=== PATIENT | female | born 1955 | race American Indian/Alaskan Native ===

== ENCOUNTER 2017-12-17 20:03 | Emergency (ER) | payer OTHER ==
[2017-12-17 20:58] LABS: Basophils # (Auto) 0.1 K/mm3 (0.0-0.1); Basophils % (Auto) 0.5 % (0.0-1.8); Eosinophils # (Auto) 0.4 K/mm3 (0.0-0.4); Eosinophils % (Auto) 3.2 % (0.0-4.3); Hematocrit 37.6 % (30.3-42.9); Hemoglobin 12.6 gm/dl (10.1-14.3); Lymphocytes # (Auto) 1.9 K/mm3 (1.2-5.4); Lymphocytes % (Auto) 15.1 % (13.4-35.0); Mean Corpuscular HGB Conc 34 % (30-34); Mean Corpuscular Hemoglobin 31 pg (28-32); Mean Corpuscular Volume 91 fl (79-97); Monocytes # (Auto) 0.8 K/mm3 (0.0-0.8); Platelet Count 525 K/mm3 (140-440); Red Blood Count 4.12 M/mm3 (3.65-5.03); Red Cell Distribution Width 16.4 % (13.2-15.2)
[2017-12-17 21:11] LABS: Albumin 4.1 g/dL (3.9-5); Calcium 9.2 mg/dL (8.4-10.2)
--- NOTE | 2017-12-17 22:00 | Emergency Department Report ---
ED Syncope HPI - General Chief Complaint: Syncope Stated Complaint: SYNCOPAL EPISODE Time Seen by Provider: 12/17/17 21:40 Source: patient, family, EMS Exam Limitations: no limitations - History of Present Illness Initial Comments: Mrs. Zhou is a pleasant 62-year-old female with a history of asthma, CVA, GERD, syncope. She also has a history of chronic kidney disease stage III. Also has a history of dyslipidemia. She was brought in by EMS for syncopal episodes. She's had a chest cold for 2- 3 weeks that she just can't get over. She is currently taking prednisone and Flonase for persistent asthma. She has a history of syncope due to hypotension. She was evaluated at 2 different hospitals: once in [place] and [facility] in [facility] for recurrent syncope. She stated that she has not had history of heart attack. She has not had history of arrhythmia. She stated that each time syncope was due to hypotension. She has been previously hospitalized for syncope evaluation. She has not eaten a full meal in 3 days. She has been under a lot of stress with graduation. 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 Her has been encouraging fluid intake. witnessed syncope. Patient was able to recall that she was putting up in a groceries at her daycare. She felt weak before the episode. saw her "go down". She was unresponsive for 2-5 minutes. She did not stop breathing. Timing/Prior Episodes: remote history Precipitating Factors: Positive: lightheadedness Context: standing, activity, emotional stress Loss of Consciousness: prolonged (minutes) (2-5 minutes according to at the bedside) Current Symptoms: back to normal - Related Data Allergies/Adverse Reactions: Allergies ibuprofen [From Motrin] Allergy (Verified 12/17/17 20:33) Unknown prochlorperazine [From Compazine] Allergy (Verified 12/17/17 20:33) Unknown ED Review of Systems ROS: Stated complaint: SYNCOPAL EPISODE Other details as noted in HPI Comment: All other systems reviewed and negative Constitutional: malaise. denies: fever Respiratory: denies: cough Cardiovascular: denies: chest pain, palpitations Gastrointestinal: other ("rumbling" in her stomach). 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 Absent: tenderness, meningismus - Respiratory Respiratory exam: Present: normal lung sounds bilaterally. Absent: respiratory distress, wheezes, rales, rhonchi - Cardiovascular Cardiovascular Exam: Present: regular rate, normal rhythm, normal heart sounds. Absent: systolic murmur, diastolic murmur, rubs, gallop - GI/Abdominal GI/Abdominal exam: Present: soft, normal bowel sounds. Absent: distended, tenderness, guarding, rebound - Extremities Exam Extremities exam: Present: normal inspection - Back Exam Back exam: Present: normal inspection - Neurological Exam Neurological exam: Present: alert, oriented X3 - Psychiatric Psychiatric exam: Present: normal affect, normal mood - Skin Skin exam: Present: warm, dry, intact, normal color. Absent: rash ED Course Vital Signs 12/17/17 12/17/17 12/17/17 20:23 20:48 21:00 Temperature 98.1 F Pulse Rate 84 86 Respiratory 18 18 Rate Blood Pressure 100/64 98/67 O2 Sat by Pulse 95 98 100 Oximetry 12/17/17 12/17/17 12/17/17 21:40 22:00 22:10 Temperature Pulse Rate 76 84 Respiratory 19 12 18 Rate Blood Pressure 100/69 O2 Sat by Pulse 99 97 Oximetry 12/17/17 12/18/17 12/18/17 23:00 00:00 01:00 Temperature Pulse Rate 78 84 68 Respiratory 14 13 13 Rate Blood Pressure 91/65 114/80 121/82 O2 Sat by Pulse 97 100 98 Oximetry ED Medical Decision Making - Lab Data Result diagrams: 12/17/17 20:45 12/17/17 20:45 Laboratory Results - last 24 hr 12/17/17 12/17/17 12/17/17 20:45 20:45 20:45 WBC 12.9 H RBC 4.12 Hgb 12.6 Hct 37.6 MCV 91 MCH 31 MCHC 34 RDW 16.4 H Plt Count 525 H Lymph % (Auto) 15.1 [place] % (Auto) 6.0 Eos % (Auto) 3.2 Baso % (Auto) 0.5 Lymph # 1.9 [place] # 0.8 Eos # 0.4 Baso # 0.1 Seg Neutrophils % 75.2 H Seg Neutrophils # 9.7 H Sodium 138 Potassium 3.1 L Chloride 99.7 Carbon Dioxide 22 Anion Gap 19 BUN 21 H Creatinine 1.7 H Estimated GFR 37 BUN/Creatinine Ratio 12 Glucose 194 H Calcium 9.2 Total Bilirubin 0.30 AST 23 ALT 17 Alkaline Phosphatase 93 Troponin T < 0.010 Total Protein 7.4 Albumin 4.1 Albumin/Globulin Ratio 1.2 Vital Signs - 24 hr 12/17/17 12/17/17 12/17/17 20:23 20:48 21:00 Temperature 98.1 F Pulse Rate 84 86 Respiratory 18 18 Rate Blood Pressure 100/64 98/67 O2 Sat by Pulse 95 98 100 Oximetry 12/17/17 21:40 Temperature Pulse Rate Respiratory 19 Rate Blood Pressure O2 Sat by Pulse Oximetry - EKG Data 12/17/17 22:04 NSR sinus arrhythmia nl rate nl axis nl intervals n biphasic T waves in the lateral leads no ST elevation rate 70 beats a minute enlarged P waves EKG is unchanged from 04/18/2010 - Medical Decision Making Mrs. Munoz is a 62-year-old female presents with syncope due to hypotension which was noted here in the ED. She's had hypotension causing syncope on previous occasion. She's had poor by mouth intake over the last few days. She is also recovering from persistent cough 2-3 weeks duration which has not improved with Flonase, albuterol or prednisone. Patient is also orthostatic. Her heart rate increases remarkably with sitting up. She is taking two diuretics: chlorthalidone 25 mg daily and spironolactone 25 mg daily. Her PCP recently doubled the dose of one of the antihypertensive medications two weeks ago. She currently takes losartan 100 mg. I have asked her to stop one of the diuretic medications. She has severe muscle cramps for which she takes gabapentin. I feel the cause of her muscle cramps is likely due to the diuretic use. She received IV fluid hydration in the ED. Hypotension did resolve. Vital Signs - 24 hr 12/17/17 12/17/17 12/17/17 20:23 20:48 21:00 Temperature 98.1 F Pulse Rate 84 86 Respiratory 18 18 Rate Blood Pressure 100/64 98/67 O2 Sat by Pulse 95 98 100 Oximetry 12/17/17 12/17/17 12/17/17 21:40 22:00 22:10 Temperature Pulse Rate 76 84 Respiratory 19 12 18 Rate Blood Pressure 100/69 O2 Sat by Pulse 99 97 Oximetry 12/17/17 12/18/17 12/18/17 23:00 00:00 01:00 Temperature Pulse Rate 78 84 68 Respiratory 14 13 13 Rate Blood Pressure 91/65 114/80 121/82 O2 Sat by Pulse 97 100 98 Oximetry Critical care attestation.: If time is entered above; I have spent that time in minutes in the direct care of this critically ill patient, excluding procedure time. ED Disposition Clinical Impression: Syncope, Orthostatic hypotension Disposition: - TO HOME OR SELFCARE Is pt being admited?: No Does the pt Need Aspirin: No Condition: Stable Instructions: Syncope (ED), Hypotension (ED) Additional Instructions: Please stop taking 1 of the water pills. Please continue to take losartan. Referrals: PRIMARY CARE, [Primary Care Provider] - 3-5 Days Time of Disposition: 02:13
[2017-12-17] MEDS ORDERED: NACL 0.9% 1000 ML 1,000 ML IV ONE (22:07)
[2017-12-17] MEDS ORDERED: DUONEB *Not for PRN Use IH ONE (22:07)
--- NOTE | 2017-12-17 22:22 | XRay Report ---
FINAL REPORT PROCEDURE: Portable upright AP chest x-ray TECHNIQUE: Chest radiograph portable upright AP view. CPT 90808 HISTORY: several weeks of cough history of asthma COMPARISON: No prior studies are available for comparison. FINDINGS: Heart: Magnified due to projection although probably mildly enlarged.. Mediastinum/Vessels: Normal. Lungs/Pleural space: Right diaphragm is mildly elevated. Lungs appear clear.. Bony thorax: No acute osseous abnormality. Life support devices: None. IMPRESSION: Mild cardiomegaly. Mild elevation right diaphragm. No other abnormality is seen..
[2017-12-18] MEDS ORDERED: NACL 0.9% 1000 ML 1,000 ML IV ONE (00:40)
[2017-12-18 02:28] VITALS: BP 119/79
== END 2017-12-18 02:27 | disposition home or self-care (01) ==
LOC: ED 20:03
DX: I95.1 Orthostatic hypotension (principal); I12.9 Hypertensive chronic kidney disease with stage 1 through stage 4 chronic kidney disease, or unspecified chronic kidney disease; N18.2 Chronic kidney disease, stage 2 (mild); E78.00 Pure hypercholesterolemia, unspecified; K21.9 Gastro-esophageal reflux disease without esophagitis; Z86.73 Personal history of transient ischemic attack (TIA), and cerebral infarction without residual deficits; Z88.6 Allergy status to analgesic agent; Z88.8 Allergy status to other drugs, medicaments and biological substances
CPT/HCPCS: 36415; 71045; 80053; 84484; 85025; 93005; 93010; 96360; 96361; 99285; J7030